=== PATIENT | male | born 1975 | race Two or more races ===

== ENCOUNTER → 2017-04-02 | Outpatient (CLI) | payer BC ==
[~2017-04-02] MED LIST: SIMV-8 OR
[2017-04-02 09:52] LABS: Urine RBC None Seen /hpf (0 - 3)
[2017-04-02 10:00] LABS: Basophils # (auto) 0 uL; Basophils % (auto) 0.7 % (0.0-2.0); CONDITION Y; Eosinophils # (auto) 0.1 uL; Eosinophils % (auto) 1.2 % (0.0-7.0); Hematocrit 46.5 % (41.0-53.0); Hemoglobin 15.9 g/dL (13.5-17.5); Lymphocytes # (auto) 3.3 uL; Lymphocytes % (auto) 50.5 % (10.0-50.0); Mean Platelet Volume 8.4 fL (7.4-10.4); Monocytes # (auto) 0.4 uL; Monocytes % (auto) 6.5 % (0.0-12.0); Neutrophils # (auto) 2.7 uL; Neutrophils % (auto) 41.1 % (37.0-80.0); Platelet Count (auto) 246 10^3/uL (140-450); Red Cell Distribution Width 12.9 % (11.6-16.0); White Blood Cell 6.5 10^3/uL (4.4-10.8)
[2017-04-02 10:20] LABS: Urine Bilirubin Negative (Negative); Urine Blood Negative /uL (Negative); Urine Color Yellow (Yellow); Urine Glucose Normal (Normal); Urine Ketone Negative (Negative); Urine Nitrite Negative (Negative); Urine Squamous Epithelial Cell FEW /hpf (<5); Urine Urobilinogen Normal (Negative); Urine pH 6.5 (5.0-8.0)
[2017-04-02 10:25] LABS: Albumin 4.2 g/dL (3.4-5.0); BUN/Creatinine Ratio 29.2; Bilirubin, Total 0.5 mg/dL (0.2-1.0); Calcium 9.1 mg/dL (8.5-10.1); Potassium 4.1 mmol/L (3.5-5.1)
== END | disposition home or self-care (01) ==
LOC: LAB 09:17
PROVIDERS: ATTEND Internal Medicine
DX: E78.00 Pure hypercholesterolemia, unspecified (principal); I10 Essential (primary) hypertension; Z01.812 Encounter for preprocedural laboratory examination
CPT/HCPCS: 36415; 80053; 80061; 81001; 82150; 83036; 83690; 84439; 84443; 85025; 85652

== ENCOUNTER 2018-02-19 07:41 | Emergency (ER) | payer BC, OTHER ==
[~2018-02-19] VITALS: Ht 165.1 cm; Wt 86.2 kg
[2018-02-19 07:54] VITALS: BP 142/103
[2018-02-19 08:17] LABS: Basophils # (auto) 0.1 uL; Basophils % (auto) 0.5 % (0.0-2.0); Eosinophils # (auto) 0.1 uL; Hematocrit 44.6 % (41.0-53.0); Lymphocytes # (auto) 3.1 uL; Lymphocytes % (auto) 29.2 % (10.0-50.0); Mean Corpuscular Hgb Conc. 33.6 g/dL (32.0-36.0); Mean Corpuscular Volume 89.4 fL (80.0-100.0); Monocytes % (auto) 9.2 % (0.0-12.0); Neutrophils # (auto) 6.4 uL; Neutrophils % (auto) 60.1 % (37.0-80.0); Platelet Count (auto) 177 10^3/uL (140-450); Red Blood Cells 4.99 10^6/uL (4.5-5.90); Red Cell Distribution Width 13.2 % (11.8-14.3); White Blood Cell 10.7 10^3/uL (4.4-10.8)
[2018-02-19 08:28] LABS: Urine Bacteria NONE SEEN /hpf (None Seen); Urine Blood Negative /uL (Negative); Urine Specific Gravity 1.007 (1.001-1.035); Urine WBC <1 /hpf (0 - 3)
[2018-02-19 08:36] LABS: Albumin 3.9 g/dL (3.4-5.0); BUN/Creatinine Ratio 15.7; Bilirubin, Total 0.6 mg/dL (0.2-1.0); Calcium 8.5 mg/dL (8.5-10.1); Potassium 3.9 mmol/L (3.5-5.1); Total Protein 7.6 g/dL (6.4-8.2)
[2018-02-19] MEDS ORDERED: SODIUM CHLORIDE 0.9% 1,000 ML IV ONE ×2 (09:59)
[2018-02-19] MEDS ORDERED: metroNIDAZOLE 500MG/100ML 100 ML IV ONE (10:00)
[2018-02-19] MEDS ORDERED: PROMETHAZINE HCL 25 MG/ML 1ML IV ONE (10:00)
[2018-02-19] MEDS ORDERED: PIPERACILLIN-TAZOB 3.375GM 100 ML IV ONE (10:00)
[2018-02-19] MEDS ORDERED: MORPHINE SULFATE 8mg/ml INJ SDV IV ONE (10:00)
== END 2018-02-19 13:23 | disposition home or self-care (01) ==
LOC: ER 07:41
DX: K57.30 Diverticulosis of large intestine without perforation or abscess without bleeding (principal)
CPT/HCPCS: 36415; 74176; 80053; 81001; 83605; 85025; 87040; 96365; 96366; 96368; 99285; J2543; J3490; J7030; 96361

== ENCOUNTER 2019-04-14 03:36 | Emergency (ER) | payer BC ==
[~2019-04-14] VITALS: Ht 167.6 cm; Wt 89.8 kg
[2019-04-14 03:59] LABS: Basophils # (auto) 0 uL; Basophils % (auto) 0.5 % (0.0-2.0); Eosinophils # (auto) 0.1 uL; Eosinophils % (auto) 0.7 % (0.0-7.0); Hematocrit 45.3 % (41.0-53.0); Hemoglobin 15.2 g/dL (13.5-17.5); Lymphocytes # (auto) 5.3 uL; Mean Corpuscular Hemoglobin 30.9 pg (28.0-32.0); Mean Corpuscular Hgb Conc. 33.7 g/dL (32.0-36.0); Mean Corpuscular Volume 91.9 fL (80.0-100.0); Monocytes # (auto) 0.8 uL; Monocytes % (auto) 7.5 % (0.0-12.0); Neutrophils # (auto) 4.3 uL; Neutrophils % (auto) 41.3 % (37.0-80.0); Nucleated Red Blood Cells % 0.3 %; Platelet Count (auto) 204 10^3/uL (140-450); Red Blood Cells 4.92 10^6/uL (4.5-5.90); Red Cell Distribution Width 13.3 % (11.8-14.3); White Blood Cell 10.5 10^3/uL (4.4-10.8)
[2019-04-14 04:20] LABS: Albumin 4.1 g/dL (3.4-5.0); BUN/Creatinine Ratio 20.5; Calcium 8.8 mg/dL (8.5-10.1); Potassium 3.4 mmol/L (3.5-5.1)
[2019-04-14 04:23] LABS: Bilirubin, Total 0.5 mg/dL (0.2-1.0); Total Protein 7.3 g/dL (6.4-8.2)
[2019-04-14 04:30] LABS: Urine Bacteria NONE SEEN /hpf (None Seen); Urine Blood Negative /uL (Negative); Urine Mucus FEW (None Seen); Urine Specific Gravity 1.024 (1.001-1.035); Urine WBC 1 /hpf (0 - 3)
[2019-04-14] MEDS ORDERED: SODIUM CHLORIDE 0.9% 1,000 ML IV ONE (07:32)
[2019-04-14] MEDS ORDERED: HYDROcodone-ACET 5/325MG TAB PO ONE (07:45)
[2019-04-14] MEDS ORDERED: metroNIDAZOLE 500MG/100ML 100 ML IV ONE (07:45)
[2019-04-14] MEDS ORDERED: POTASSIUM EFFERVESENT TAB 25 MEQ PO ONE (07:45)
[2019-04-14 09:34] VITALS: BP 112/76
== END 2019-04-14 10:03 | disposition home or self-care (01) ==
LOC: ER 03:38
DX: K57.30 Diverticulosis of large intestine without perforation or abscess without bleeding (principal)
CPT/HCPCS: 36415; 74176; 80053; 81001; 83690; 85025; 96361; 96365; 99284; J3490

== ENCOUNTER → 2019-11-21 | Outpatient (CLI) | payer BC ==
[2019-11-21 08:08] LABS: Basophils # (auto) 0 10 ^3/uL (0-0.2); Basophils % (auto) 0.7 % (0.0-2.0); Eosinophils # (auto) 0.1 10 ^3/uL (0-0.8); Hematocrit 46.5 % (41.0-53.0); Hemoglobin 15.7 g/dL (13.5-17.5); Lymphocytes # (auto) 2.8 10 ^3/uL (0.4-5.4); Lymphocytes % (auto) 44.9 % (10.0-50.0); Mean Corpuscular Hemoglobin 30.8 pg (28.0-32.0); Mean Corpuscular Hgb Conc. 33.7 g/dL (32.0-36.0); Mean Corpuscular Volume 91.4 fL (80.0-100.0); Monocytes # (auto) 0.6 10 ^3/uL (0-1.3); Monocytes % (auto) 9.6 % (0.0-12.0); Neutrophils # (auto) 2.8 10 ^3/uL (1.6-8.6); Neutrophils % (auto) 43.8 % (37.0-80.0); Nucleated Red Blood Cells % 0.1 %; Platelet Count (auto) 193 10^3/uL (140-450); Red Blood Cells 5.09 10^6/uL (4.5-5.90); Red Cell Distribution Width 13.3 % (11.8-14.3); White Blood Cell 6.3 10^3/uL (4.4-10.8)
[2019-11-21 08:12] LABS: Urine Bacteria NONE SEEN /hpf (None Seen); Urine Blood Negative /uL (Negative); Urine Mucus FEW (None Seen); Urine Specific Gravity 1.018 (1.001-1.035); Urine WBC <1 /hpf (0 - 3)
[2019-11-21 08:30] LABS: Albumin 4.2 g/dL (3.4-5.0); Potassium 3.9 mmol/L (3.5-5.1)
[2019-11-21 08:36] LABS: Bilirubin, Total 0.7 mg/dL (0.2-1.0); Calcium 9.4 mg/dL (8.5-10.1); Total Protein 7.9 g/dL (6.4-8.2)
[2019-11-21 08:37] LABS: Free T4 (Free Thyroxine) 0.98 ng/dL (0.89-1.76)
[2019-11-21 08:38] LABS: Prostate Specific Antigen 0.39 ng/mL (0.0-4.0)
== END | disposition home or self-care (01) ==
LOC: LAB 07:50
PROVIDERS: ATTEND Internal Medicine
DX: E78.00 Pure hypercholesterolemia, unspecified (principal); R35.1 Nocturia; R10.9 Unspecified abdominal pain
CPT/HCPCS: 36415; 80053; 80061; 81001; 83036; 83615; 84153; 84439; 84443; 85025; 85652

== ENCOUNTER → 2020-04-16 | Outpatient (CLI) | payer BC | END | disposition home or self-care (01) | LOC: LAB 12:43 | PROVIDERS: ATTEND Nurse Practitioner Family | DX: Z20.828 Contact with and (suspected) exposure to other viral communicable diseases (principal) ==

== ENCOUNTER 2022-03-19 15:07 | Emergency (ER) | payer BC, OTHER ==
[~2022-03-19] VITALS: Ht 160 cm; Wt 88.9 kg
[2022-03-19 16:07] LABS: Basophils # (auto) 0 10 ^3/uL (0-0.2); Basophils % (auto) 0.4 % (0.0-2.0); Eosinophils # (auto) 0.1 10 ^3/uL (0-0.8); Eosinophils % (auto) 0.5 % (0.0-7.0); Hematocrit 45.8 % (41.0-53.0); Hemoglobin 14.8 g/dL (13.5-17.5); Lymphocytes # (auto) 3.1 10 ^3/uL (0.4-5.4); Lymphocytes % (auto) 26.7 % (10.0-50.0); Mean Corpuscular Hemoglobin 29.7 pg (28.0-32.0); Mean Corpuscular Hgb Conc. 32.3 g/dL (32.0-36.0); Mean Corpuscular Volume 91.9 fL (80.0-100.0); Monocytes # (auto) 1.1 10 ^3/uL (0-1.3); Monocytes % (auto) 9.9 % (0.0-12.0); Neutrophils # (auto) 7.2 10 ^3/uL (1.6-8.6); Neutrophils % (auto) 62.5 % (37.0-80.0); Nucleated Red Blood Cells % 0.1 %; Red Blood Cells 4.99 10^6/uL (4.5-5.90); Red Cell Distribution Width 13.2 % (11.8-14.3); White Blood Cell 11.5 10^3/uL (4.4-10.8)
[2022-03-19 16:11] LABS: Urine Bacteria NONE SEEN /hpf (None Seen); Urine Blood Negative /uL (Negative); Urine Mucus FEW (None Seen); Urine Specific Gravity 1.017 (1.001-1.035); Urine WBC <1 /hpf (0 - 3)
[2022-03-19 16:18] LABS: BUN/Creatinine Ratio 13.4; Calcium 8.9 mg/dL (8.5-10.1); Potassium 3.4 mmol/L (3.5-5.1)
[2022-03-19 16:21] LABS: Bilirubin, Total 0.7 mg/dL (0.2-1.0); Total Protein 7.6 g/dL (6.4-8.2)
[2022-03-19 16:44] LABS: CRP High Sensitivity 8.96 mg/dL (< 0.3)
[2022-03-19] MEDS ORDERED: ACET-1803 PO (17:29)
[2022-03-19] MEDS ORDERED: AMOX500T86 PO (17:29)
[2022-03-19 17:43] VITALS: BP 113/78
== END 2022-03-19 18:07 | disposition home or self-care (01) ==
LOC: EEVIPCON 15:07 → ER 15:07
DX: K57.32 Diverticulitis of large intestine without perforation or abscess without bleeding (principal); I10 Essential (primary) hypertension
CPT/HCPCS: 36415; 74176; 80053; 81001; 83690; 85025; 86141

== ENCOUNTER 2022-05-30 00:37 | Emergency (ER) | payer OTHER ==
[~2022-05-30] VITALS: Ht 165.1 cm; Wt 84.1 kg
[~2022-05-30 00:37] MED LIST changes: +ACET-1803 PO; +AMOX500T86 PO
[2022-05-30] MEDS ORDERED: OXYCODONE W/ ACETAMINOPHEN 5/325MG TABLET PO ONE (01:00)
[2022-05-30 01:26] LABS: Basophils # (auto) 0.1 10 ^3/uL (0-0.2); Basophils % (auto) 0.6 % (0.0-2.0); Eosinophils # (auto) 0 10 ^3/uL (0-0.8); Eosinophils % (auto) 0.3 % (0.0-7.0); Hematocrit 43.3 % (41.0-53.0); Hemoglobin 14.9 g/dL (13.5-17.5); Lymphocytes # (auto) 2.2 10 ^3/uL (0.4-5.4); Lymphocytes % (auto) 18.7 % (10.0-50.0); Mean Corpuscular Hemoglobin 30.8 pg (28.0-32.0); Mean Corpuscular Hgb Conc. 34.3 g/dL (32.0-36.0); Mean Corpuscular Volume 89.7 fL (80.0-100.0); Monocytes # (auto) 1.1 10 ^3/uL (0-1.3); Monocytes % (auto) 9.8 % (0.0-12.0); Neutrophils # (auto) 8.2 10 ^3/uL (1.6-8.6); Neutrophils % (auto) 70.6 % (37.0-80.0); Red Blood Cells 4.83 10^6/uL (4.5-5.90); Red Cell Distribution Width 13.1 % (11.8-14.3); White Blood Cell 11.6 10^3/uL (4.4-10.8)
[2022-05-30 01:42] LABS: Albumin 4.1 g/dL (3.4-5.0); BUN/Creatinine Ratio 17.1; Calcium 8.9 mg/dL (8.5-10.1); Potassium 3.5 mmol/L (3.5-5.1)
[2022-05-30 01:45] LABS: Bilirubin, Total 0.6 mg/dL (0.2-1.0); Total Protein 7.8 g/dL (6.4-8.2)
[2022-05-30 01:51] LABS: Urine Bacteria NONE SEEN /hpf (None Seen); Urine Blood Negative /uL (Negative); Urine Specific Gravity 1.009 (1.001-1.035); Urine WBC <1 /hpf (0 - 3)
[2022-05-30 04:58] VITALS: BP 114/79
[2022-05-30] MEDS ORDERED: metroNIDAZOLE 500 MG TAB PO ONE (05:00)
[2022-05-30] MEDS ORDERED: CIPROFLOXACIN HCL 500 MG TAB PO ONE (05:00)
[2022-05-30] MEDS ORDERED: PERCOT PO (05:08)
[2022-05-30] MEDS ORDERED: METR500T PO (05:08)
[2022-05-30] MEDS ORDERED: ONDA-144 PO (05:08)
[2022-05-30] MEDS ORDERED: CIPR-173 PO (05:08)
== END 2022-05-30 05:15 | disposition home or self-care (01) ==
LOC: ER 00:38
DX: K52.9 Noninfective gastroenteritis and colitis, unspecified (principal); K57.32 Diverticulitis of large intestine without perforation or abscess without bleeding
CPT/HCPCS: 36415; 74176; 80053; 81001; 83690; 85025

== ENCOUNTER 2022-12-24 07:31 | Emergency (ER) | payer OTHER ==
[~2022-12-24] VITALS: Ht 165.1 cm; Wt 90.0 kg
[~2022-12-24 07:31] MED LIST changes: +CIPR-173 PO; +METR500T PO; +ONDA-144 PO; +PERCOT PO
[2022-12-24 08:03] LABS: Basophils # (auto) 0.1 10 ^3/uL (0-0.2); Basophils % (auto) 0.6 % (0.0-2.0); Eosinophils # (auto) 0.1 10 ^3/uL (0-0.8); Eosinophils % (auto) 0.5 % (0.0-7.0); Hematocrit 43.7 % (41.0-53.0); Lymphocytes # (auto) 2.6 10 ^3/uL (0.4-5.4); Lymphocytes % (auto) 25.8 % (10.0-50.0); Mean Corpuscular Hemoglobin 31.3 pg (28.0-32.0); Mean Corpuscular Hgb Conc. 34.4 g/dL (32.0-36.0); Mean Corpuscular Volume 90.9 fL (80.0-100.0); Monocytes # (auto) 0.8 10 ^3/uL (0-1.3); Monocytes % (auto) 8.1 % (0.0-12.0); Neutrophils # (auto) 6.6 10 ^3/uL (1.6-8.6); Nucleated Red Blood Cells % 0.1 %; Red Blood Cells 4.81 10^6/uL (4.5-5.90); Red Cell Distribution Width 13.4 % (11.8-14.3); White Blood Cell 10.1 10^3/uL (4.4-10.8)
[2022-12-24 08:15] LABS: Urine WBC None Seen /hpf (0 - 3)
[2022-12-24 08:18] LABS: Calcium 8.9 mg/dL (8.5-10.1)
[2022-12-24 08:22] LABS: BUN/Creatinine Ratio 20.3 (10.0-20.0); Bilirubin, Total 0.7 mg/dL (0.2-1.0); Total Protein 7.1 g/dL (6.4-8.2)
[2022-12-24 08:29] LABS: Urine Bacteria NONE SEEN /hpf (None Seen); Urine Blood Negative /uL (Negative); Urine Specific Gravity 1.018 (1.001-1.035)
[2022-12-24] MEDS ORDERED: DONNATAL 5ml ORAL Elix (BELLADONNA ALK-PHENOBARB) PO ONE (08:30)
[2022-12-24] MEDS ORDERED: MAALOX PLUS or MAALOX 30 ML PO ONE (08:30)
[2022-12-24] MEDS ORDERED: LIDOCAINE VISCOUS 2% 15ML UD PO ONE (08:30)
[2022-12-24 09:00] LABS: Alcohol, Urine < 3.0 mg/dL (0-10); Amphetamine Screen, Urine NEGATIVE (NEGATIVE); Barbiturate Scree,Urine NEGATIVE (NEGATIVE); Benzodiazephine Screen, Urine NEGATIVE (NEGATIVE); Cannabinoid Screen, Urine NEGATIVE (NEGATIVE); Cocaine Screen, Urine NEGATIVE (NEGATIVE); Opiate Scree,Urine NEGATIVE (NEGATIVE); Phencyclidine Screen, Urine NEGATIVE (NEGATIVE)
[2022-12-24] MEDS ORDERED: cefTRIAXone 1GM/50ML D5W 50 ML IV ONE (10:00)
[2022-12-24] MEDS ORDERED: metroNIDAZOLE 500MG/100ML 100 ML IV ONE (10:00)
[2022-12-24] MEDS ORDERED: MORPHINE SULFATE 4 MG/ML SYR/VIAL IV ONE (10:00)
[2022-12-24] MEDS ORDERED: SODIUM CHLORIDE 0.9% 1,000 ML IV ONE (10:00)
[2022-12-24] MEDS ORDERED: ONDANSETRON HCL 4 MG/2 ML VIAL IV ONE (10:00)
[2022-12-24] MEDS ORDERED: METR500T PO (10:07)
[2022-12-24] MEDS ORDERED: IBU600T PO (10:07)
[2022-12-24] MEDS ORDERED: CEPH-510 PO (10:07)
[2022-12-24 10:40] VITALS: BP 133/93
== END 2022-12-24 11:31 | disposition home or self-care (01) ==
LOC: ER 07:31
DX: R10.33 Periumbilical pain (principal); K57.92 Diverticulitis of intestine, part unspecified, without perforation or abscess without bleeding; Z79.899 Other long term (current) drug therapy; Z98.890 Other specified postprocedural states
CPT/HCPCS: 36415; 74176; 80053; 80307; 81001; 83690; 85025; 96365; 99285; J0696; J3490; J7030

== ENCOUNTER 2023-05-20 18:17 | Inpatient (IN) | payer OTHER ==
[~2023-05-20] VITALS: Ht 165.1 cm; Wt 86.6 kg
[~2023-05-20 18:17] MED LIST changes: +CEPH-510 PO; +IBU600T PO; -SIMV-8 OR; +SIMV20TA20 OR
[2023-05-20 18:53] LABS: Basophils # (auto) 0 10 ^3/uL (0-0.2); Basophils % (auto) 0.4 % (0.0-2.0); Eosinophils # (auto) 0 10 ^3/uL (0-0.8); Eosinophils % (auto) 0.5 % (0.0-7.0); Hematocrit 46.2 % (41.0-53.0); Hemoglobin 15.8 g/dL (13.5-17.5); Lymphocytes % (auto) 37.6 % (10.0-50.0); Mean Corpuscular Hemoglobin 31.1 pg (28.0-32.0); Mean Corpuscular Hgb Conc. 34.2 g/dL (32.0-36.0); Mean Corpuscular Volume 91.1 fL (80.0-100.0); Monocytes # (auto) 0.6 10 ^3/uL (0-1.3); Monocytes % (auto) 11.7 % (0.0-12.0); Neutrophils # (auto) 2.7 10 ^3/uL (1.6-8.6); Neutrophils % (auto) 49.8 % (37.0-80.0); Nucleated Red Blood Cells % 0.2 %; Red Blood Cells 5.08 10^6/uL (4.5-5.90); Red Cell Distribution Width 13.6 % (11.8-14.3); White Blood Cell 5.4 10^3/uL (4.4-10.8)
[2023-05-20 19:05] LABS: Urine Bacteria NONE SEEN /hpf (None Seen); Urine Blood Negative /uL (Negative); Urine Clarity Clear (Clear); Urine Color Yellow (Yellow); Urine Protein, UAD Negative (Negative); Urine Specific Gravity 1.012 (1.001-1.035); Urine Urobilinogen Normal (Negative); Urine WBC 1 /hpf (0 - 3)
[2023-05-20 19:16] LABS: Alanine Aminotransferase 36 U/L (7-40); Albumin 4.6 g/dL (3.2-4.8); Alkaline Phosphatase 47 U/L (46-116); Anion Gap 6.8 (5-15); Aspartate Aminotransferase 9 U/L (13-40); BUN/Creatinine Ratio 11.8 (10.0-20.0); Blood Urea Nitrogen 9 mg/dL (9-23); Calcium 9.1 mg/dL (8.5-10.1); Carbon Dioxide 25.2 mmol/L (20-30); Chloride 107 mmol/L (98-107); Glucose 98 mg/dL (74-106); Lipase 42 U/L (12-53); Potassium 3.7 mmol/L (3.5-5.1); Sodium 139 mmol/L (136-145)
[2023-05-20 19:17] LABS: Bilirubin, Total 0.9 mg/dL (0.2-1.0)
[2023-05-20 22:00] VITALS: PULSE 79; RESP 16; O2SAT 94
[2023-05-20] MEDS ORDERED: MORPHINE SULFATE 4 MG/ML SYR/VIAL IV ONE (22:15)
[2023-05-20] MEDS ORDERED: SODIUM CHLORIDE 0.9% 1,000 ML IV ONE (22:15)
[2023-05-20] MEDS ORDERED: ONDANSETRON HCL 4 MG/2 ML VIAL IV ONE (22:15)
[2023-05-20] MEDS ORDERED: FAMOTIDINE (10MG/ML) 2ML VL IV ONE (22:15)
[2023-05-20] MEDS ORDERED: NITROGLYCERIN 0.4 MG SL TAB SL PRN (23:00)
[2023-05-20] MEDS ORDERED: ONDANSETRON HCL 4 MG/2 ML VIAL IV PRN (23:00)
[2023-05-20] MEDS ORDERED: ACETAMINOPHEN 325 MG TAB PO PRN (23:00)
[2023-05-20] MEDS ORDERED: MORPHINE SULFATE INJ 2 MG/ml SYRG IV PRN ×2 (23:00)
[2023-05-20] MEDS: SODIUM CHLORIDE 0.9% 1,000 ML IV SCH (23:00)
[2023-05-21 03:51] LABS: Basophils # (auto) 0 10 ^3/uL (0-0.2); Basophils % (auto) 0.5 % (0.0-2.0); Eosinophils # (auto) 0.1 10 ^3/uL (0-0.8); Eosinophils % (auto) 1.4 % (0.0-7.0); Hemoglobin 13.8 g/dL (13.5-17.5); Lymphocytes # (auto) 2.3 10 ^3/uL (0.4-5.4); Lymphocytes % (auto) 44.1 % (10.0-50.0); Mean Corpuscular Hgb Conc. 33.8 g/dL (32.0-36.0); Mean Corpuscular Volume 91.8 fL (80.0-100.0); Monocytes # (auto) 0.6 10 ^3/uL (0-1.3); Monocytes % (auto) 12.2 % (0.0-12.0); Neutrophils # (auto) 2.2 10 ^3/uL (1.6-8.6); Neutrophils % (auto) 41.8 % (37.0-80.0); Red Blood Cells 4.46 10^6/uL (4.5-5.90); Red Cell Distribution Width 13.5 % (11.8-14.3); White Blood Cell 5.3 10^3/uL (4.4-10.8)
[2023-05-21 04:10] LABS: Calcium 8.3 mg/dL (8.5-10.1); Chloride 108 mmol/L (98-107); Potassium 3.5 mmol/L (3.5-5.1); Sodium 140 mmol/L (136-145)
[2023-05-21 04:11] LABS: Anion Gap 6.1 (5-15); Carbon Dioxide 25.9 mmol/L (20-30)
[2023-05-21 04:16] LABS: BUN/Creatinine Ratio 11.3 (10.0-20.0); Blood Urea Nitrogen 8 mg/dL (9-23); Glucose 98 mg/dL (74-106)
[2023-05-21] MEDS: SODIUM CHLORIDE 0.9% 1,000 ML IV SCH (08:40)
[2023-05-21 09:12] VITALS: PULSE 60; RESP 19; O2SAT 97
[2023-05-21 10:02] VITALS: BP 124/80; PULSE 70; RESP 17; TEMP 98; O2SAT 93
[2023-05-21] MEDS: PANTOPRAZOLE 40 MG/10 ML VIAL INJ IV SCH (11:11)
[2023-05-21 12:57] VITALS: BP 132/87; PULSE 73; RESP 17; TEMP 98.1; O2SAT 97
[2023-05-21] MEDS: D5W/SOD CHL 0.45%/KCL 20MEQ 1,000 ML IV SCH ×2 (14:00→23:15)
[2023-05-21 16:00] VITALS: BP 110/77; PULSE 66; RESP 18; TEMP 98.4; O2SAT 93
[2023-05-21 22:00] VITALS: BP 127/91; PULSE 77; RESP 19; TEMP 98.5; O2SAT 95
[2023-05-22 05:00] VITALS: BP 121/84; PULSE 78; RESP 19; TEMP 98; O2SAT 95
[2023-05-22 05:38] LABS: Basophils # (auto) 0 10 ^3/uL (0-0.2); Basophils % (auto) 0.3 % (0.0-2.0); Eosinophils # (auto) 0.1 10 ^3/uL (0-0.8); Eosinophils % (auto) 1.4 % (0.0-7.0); Hematocrit 42.5 % (41.0-53.0); Hemoglobin 14.6 g/dL (13.5-17.5); Lymphocytes # (auto) 2.1 10 ^3/uL (0.4-5.4); Lymphocytes % (auto) 32.5 % (10.0-50.0); Mean Corpuscular Hemoglobin 31.3 pg (28.0-32.0); Mean Corpuscular Hgb Conc. 34.2 g/dL (32.0-36.0); Mean Corpuscular Volume 91.5 fL (80.0-100.0); Monocytes # (auto) 0.8 10 ^3/uL (0-1.3); Monocytes % (auto) 11.8 % (0.0-12.0); Neutrophils # (auto) 3.5 10 ^3/uL (1.6-8.6); Nucleated Red Blood Cells % 0.1 %; Red Blood Cells 4.65 10^6/uL (4.5-5.90); Red Cell Distribution Width 13.1 % (11.8-14.3); White Blood Cell 6.4 10^3/uL (4.4-10.8)
[2023-05-22 05:52] LABS: Anion Gap 5.7 (5-15); Carbon Dioxide 27.3 mmol/L (20-30); Chloride 107 mmol/L (98-107); Potassium 3.6 mmol/L (3.5-5.1); Sodium 140 mmol/L (136-145)
[2023-05-22 05:53] LABS: Calcium 9.3 mg/dL (8.7-10.4)
[2023-05-22 05:58] LABS: BUN/Creatinine Ratio 9.3 (10.0-20.0); Blood Urea Nitrogen 7 mg/dL (9-23); Glucose 100 mg/dL (74-106)
[2023-05-22 08:00] VITALS: BP 120/81; PULSE 75; RESP 14; TEMP 98.2; O2SAT 95
[2023-05-22 09:00] VITALS: BP 120/81; PULSE 75; RESP 14; TEMP 98.2; O2SAT 95
[2023-05-22] MEDS: D5W/SOD CHL 0.45%/KCL 20MEQ 1,000 ML IV SCH (09:15)
[2023-05-22] MEDS ORDERED: OMEP20TA PO (09:16)
[2023-05-22] MEDS ORDERED: POTASSIUM EFFERVESENT TAB 25 MEQ PO ONE (09:30)
[2023-05-22] MEDS ORDERED: GASTROGRAFIN 120 ML SOL ONE (11:03)
[2023-05-22] MEDS: PANTOPRAZOLE 40 MG/10 ML VIAL INJ IV SCH (12:50)
[2023-05-22 13:00] VITALS: BP 121/81; PULSE 77; RESP 14; TEMP 98.2; O2SAT 98
[2023-05-22 16:00] VITALS: BP 120/75; PULSE 82; RESP 12; TEMP 98; O2SAT 95
[2023-05-22 18:06] VITALS: BP 120/75; PULSE 82; RESP 12; TEMP 98.1; O2SAT 95
== END 2023-05-22 18:20 | disposition home or self-care (01) | DRG 392 ==
LOC: ER 18:17 → OVERFLOW 23:03 → EAST 05-21 09:25
PROVIDERS: ADMIT Nurse Practitioner Family; ATTEND Hospitalist
PROC: 0D9670Z Drainage of Stomach with Drainage Device, Via Natural or Artificial Opening (ICD-10-PCS; principal; 2023-05-21)
DX: K52.9 Noninfective gastroenteritis and colitis, unspecified (principal); K56.690 Other partial intestinal obstruction; K57.30 Diverticulosis of large intestine without perforation or abscess without bleeding
CPT/HCPCS: 36415; 71045; 74176; 74250; 80048; 80053; 81001; 83690; 85025; 96361; 96374; 96375; C9113; G0378; J2405; J3490

== ENCOUNTER 2024-04-06 05:20 | Inpatient (IN) | payer OTHER ==
[~2024-04-06] VITALS: Ht 165.1 cm; Wt 85.8 kg
[2024-04-06] VITALS (11 sets, daily range): BP systolic 110–127; BP diastolic 79–85; PULSE 54–78; RESP 12–20; TEMP 97.7–98.8; O2SAT 96–100
[~2024-04-06 05:20] MED LIST changes: -ACET-1803 PO; -AMOX500T86 PO; -CEPH-510 PO; -CIPR-173 PO; -IBU600T PO; -METR500T PO; +OMEP20TA PO; -ONDA-144 PO; -PERCOT PO; -SIMV20TA20 OR
[2024-04-06 05:59] LABS: Hematocrit 41.2 % (41.0-53.0); Hemoglobin 14.3 g/dL (13.5-17.5); Mean Corpuscular Hemoglobin 31.7 pg (28.0-32.0); Mean Corpuscular Hgb Conc. 34.7 g/dL (32.0-36.0); Mean Corpuscular Volume 91.3 fL (80.0-100.0); Red Blood Cells 4.51 10^6/uL (4.5-5.90); Red Cell Distribution Width 13.1 % (11.8-14.3)
[2024-04-06 06:07] LABS: INR 1.05 (0.9-1.15); Partial Thromboplastin Time 27.1 SEC (24.5-34.5); Prothrombin Time 11.1 sec (9.3-11.8)
[2024-04-06 06:13] LABS: Alanine Aminotransferase 29 U/L (7-40); Albumin 4.5 g/dL (3.2-4.8); Alkaline Phosphatase 59 U/L (46-116); Anion Gap 9 (5-15); Aspartate Aminotransferase 14 U/L (13-40); BUN/Creatinine Ratio 13.3 (10.0-20.0); Blood Urea Nitrogen 11 mg/dL (9-23); Calcium 9.3 mg/dL (8.7-10.4); Carbon Dioxide 26 mmol/L (20-30); Chloride 106 mmol/L (98-107); Glucose 123 mg/dL (74-106); Magnesium 2.1 mg/dL (1.6-2.6); Potassium 3.3 mmol/L (3.5-5.1); Sodium 141 mmol/L (136-145)
[2024-04-06 06:14] LABS: Bilirubin, Total 0.4 mg/dL (0.2-1.0); Total Protein 6.9 g/dL (5.7-8.2)
[2024-04-06 06:20] LABS: Band Neutrophils % (manual) 0; Basophils % (manual) 0 (0.0-2.0); Blast Cells 0; Metamyelocytes % 0; Myelocytes % 0; Promyelocytes % 0; Reactive Lymphocytes 0
[2024-04-06 06:37] LABS: Lymphocytes % (manual) 46 (10.0-50.0)
[2024-04-06 06:38] LABS: Eosinophils % (manual) 1 (0-7); Large Platelets FEW; Monocytes % (manual) 23 (0-12); Platelet Estimate Adequa
[2024-04-06] MEDS ORDERED: ASPirin 81 mg TAB PO ONE (07:15)
[2024-04-06] MEDS: NITROGLYCERIN 0.4 MG SL TAB SL ONE (08:02)
[2024-04-06] MEDS: ASPirin-EC 81 mg tab PO ONE (08:08)
[2024-04-06] MEDS: MORPHINE SULFATE 4 MG/ML SYR/VIAL IV ONE (09:03)
[2024-04-06] MEDS: HEPARIN SODIUM (PORCINE) 5000 UNITS/ML 1ML VIAL IV ONE (09:22)
[2024-04-06] MEDS: NITROGLYCERIN 50MG/250ML 250 ML IV ONE (09:35)
[2024-04-06] MEDS ORDERED: HEPARIN DRIP/D5W 100UNITS/ML 250 ML IV SCH (10:30)
[2024-04-06] MEDS ORDERED: ACETAMINOPHEN 325 MG TAB PO PRN (11:45)
[2024-04-06] MEDS ORDERED: MORPHINE SULFATE INJ 2 MG/ml SYRG IV PRN ×2 (11:45)
[2024-04-06] MEDS ORDERED: HYDROcodone-ACET 5/325MG TAB PO PRN (11:45)
[2024-04-06] MEDS ORDERED: NITROGLYCERIN 0.4 MG SL TAB SL PRN (11:45)
[2024-04-06] MEDS: fentaNYL CITRATE 100 MCG/2 ML VL ONE (11:48)
[2024-04-06] MEDS: HEPARIN SODIUM (PORCINE) 5000 UNITS/ML 1ML VIAL ONE (11:48)
[2024-04-06] MEDS: VERAPAMIL 2.5MG/ML INJ 2ML VIAL IV ONE (11:48)
[2024-04-06] MEDS: ANGIOMAX 250 MG VIAL IV ONE (11:48)
[2024-04-06] MEDS: MIDAZOLAM HCL 2MG/2ML 2ml VIAL (1mg/ml) ONE (11:49)
[2024-04-06] MEDS: SODIUM CHL 0.9% 50 ML ONE (11:49)
[2024-04-06] MEDS: IODIXANOL 320MG/ML 100ML BTL IV ONE (11:50)
[2024-04-06] MEDS: HEPARIN IN NS 1000Units/500mL 1,500 ML ONE (11:50)
[2024-04-06] MEDS: LIDOCAINE 2%HCL (LOCAL ANESTH.) INJ 20ML MDV ONE (11:50)
[2024-04-06] MEDS: EPTIFIBATIDE INJ (2MG/ML) 10ML VIAL IV ONE ×2 (12:30)
[2024-04-06] MEDS: niCARdipine 25 MG/10 ML VIAL IV ONE (12:40)
[2024-04-06] MEDS: TICAGRELOR 90 MG TAB ONE (13:13)
[2024-04-06] MEDS: SODIUM CHLORIDE 0.9% 1,000 ML IV SCH (13:20)
[2024-04-06] MEDS: TICAGRELOR 90 MG TAB PO SCH (21:27)
[2024-04-06] MEDS: ATORVASTATIN 20 MG TAB PO SCH (21:27)
[2024-04-07] VITALS (7 sets, daily range): BP systolic 102–135; BP diastolic 63–94; PULSE 75–87; RESP 17–20; TEMP 97.9–98.3; O2SAT 95–98
[2024-04-07 06:46] LABS: Basophils # (auto) 0.1 10 ^3/uL (0-0.2); Basophils % (auto) 0.6 % (0.0-2.0); Eosinophils # (auto) 0 10 ^3/uL (0-0.8); Eosinophils % (auto) 0.5 % (0.0-7.0); Hematocrit 43.5 % (41.0-53.0); Hemoglobin 15.4 g/dL (13.5-17.5); Lymphocytes # (auto) 2.6 10 ^3/uL (0.4-5.4); Lymphocytes % (auto) 28.2 % (10.0-50.0); Mean Corpuscular Hemoglobin 32.4 pg (28.0-32.0); Mean Corpuscular Hgb Conc. 35.4 g/dL (32.0-36.0); Mean Corpuscular Volume 91.5 fL (80.0-100.0); Monocytes % (auto) 10.8 % (0.0-12.0); Neutrophils # (auto) 5.5 10 ^3/uL (1.6-8.6); Neutrophils % (auto) 59.9 % (37.0-80.0); Nucleated Red Blood Cells % 0.1 %; Red Blood Cells 4.75 10^6/uL (4.5-5.90); Red Cell Distribution Width 13.2 % (11.8-14.3); White Blood Cell 9.2 10^3/uL (4.4-10.8)
[2024-04-07 07:07] LABS: Alanine Aminotransferase 46 U/L (7-40); Alkaline Phosphatase 47 U/L (46-116); Anion Gap 8 (5-15); BUN/Creatinine Ratio 9.1 (10.0-20.0); Blood Urea Nitrogen 6 mg/dL (9-23); Calcium 9.4 mg/dL (8.7-10.4); Carbon Dioxide 24 mmol/L (20-30); Chloride 107 mmol/L (98-107); Glucose 111 mg/dL (74-106); Potassium 3.4 mmol/L (3.5-5.1); Sodium 139 mmol/L (136-145)
[2024-04-07 07:08] LABS: Albumin 4.4 g/dL (3.2-4.8); Aspartate Aminotransferase 125 U/L (13-40)
[2024-04-07 07:09] LABS: Bilirubin, Total 1.2 mg/dL (0.2-1.0); Total Protein 6.6 g/dL (5.7-8.2)
[2024-04-07] MEDS: ASPirin 81 mg TAB PO SCH (09:01)
[2024-04-07] MEDS: ENALAPRIL MALEATE 2.5 MG TAB PO SCH (09:01)
[2024-04-07] MEDS: METOPROLOL SUCCINATE XL 50 MG TAB PO SCH (09:02)
[2024-04-07] MEDS ORDERED: ENAL1TAB42 PO (16:26)
[2024-04-07] MEDS ORDERED: ASPI-325 PO (16:26)
[2024-04-07] MEDS ORDERED: NITR0.4S29 SL (16:26)
[2024-04-07] MEDS ORDERED: METO-6 PO (16:26)
[2024-04-07] MEDS ORDERED: ATOR20TA50 PO (16:26)
[2024-04-07] MEDS ORDERED: TICA90TA PO (16:26)
== END 2024-04-07 17:59 | disposition home or self-care (01) | DRG 322 ==
LOC: EEVIPCON 05:20 → ER 05:20 → TELE 11:48 → TELE-EAST 16:07
PROVIDERS: ADMIT Internal Medicine; ATTEND Internal Medicine
PROC: 027034Z Dilation of Coronary Artery, One Artery with Drug-eluting Intraluminal Device, Percutaneous Approach (ICD-10-PCS; principal; 2024-04-06)
PROC: 03CY3ZZ Extirpation of Matter from Upper Artery, Percutaneous Approach (ICD-10-PCS; 2024-04-06)
PROC: 4A023N7 Measurement of Cardiac Sampling and Pressure, Left Heart, Percutaneous Approach (ICD-10-PCS; 2024-04-06)
PROC: B211YZZ Fluoroscopy of Multiple Coronary Arteries using Other Contrast (ICD-10-PCS; 2024-04-06)
DX: I21.4 Non-ST elevation (NSTEMI) myocardial infarction (principal); E66.01 Morbid (severe) obesity due to excess calories; E78.5 Hyperlipidemia, unspecified; G47.30 Sleep apnea, unspecified; I10 Essential (primary) hypertension; Z79.899 Other long term (current) drug therapy; Z79.82 Long term (current) use of aspirin; Z68.31 Body mass index [BMI] 31.0-31.9, adult
CPT/HCPCS: 36415; 71045; 80053; 83735; 83880; 84484; 85007; 85025; 85027; 85610; 85730; 86850; 86900; 86901; 93005; 93306; 99152; C1874; G0378; J2250; Q9967

== ENCOUNTER → 2024-12-24 | Outpatient (CLI) | payer BC ==
[~2024-12-24] MED LIST changes: +ASPI-325 PO; +ATOR20TA50 PO; +ENAL1TAB42 PO; +METO-6 PO; +NITR0.4S29 SL; +TICA90TA PO
[2024-12-24 09:19] LABS: Basophils # (auto) 0 10 ^3/uL (0-0.2); Basophils % (auto) 0.6 % (0.0-2.0); Eosinophils # (auto) 0 10 ^3/uL (0-0.8); Hematocrit 44.2 % (41.0-53.0); Lymphocytes # (auto) 2.1 10 ^3/uL (0.4-5.4); Lymphocytes % (auto) 47.1 % (10.0-50.0); Mean Corpuscular Hemoglobin 31.4 pg (28.0-32.0); Mean Corpuscular Hgb Conc. 33.9 g/dL (32.0-36.0); Mean Corpuscular Volume 92.9 fL (80.0-100.0); Monocytes # (auto) 0.4 10 ^3/uL (0-1.3); Monocytes % (auto) 8.5 % (0.0-12.0); Neutrophils # (auto) 1.9 10 ^3/uL (1.6-8.6); Neutrophils % (auto) 42.8 % (37.0-80.0); Nucleated Red Blood Cells % 0.1 %; Platelet Count (auto) 181 10^3/uL (140-450); Red Blood Cells 4.76 10^6/uL (4.5-5.90); Red Cell Distribution Width 12.9 % (11.8-14.3); White Blood Cell 4.5 10^3/uL (4.4-10.8)
[2024-12-24 09:24] LABS: Alanine Aminotransferase 30 U/L (7-40); Anion Gap 7 (5-15); Aspartate Aminotransferase 16 U/L (13-40); Blood Urea Nitrogen 10 mg/dL (9-23); Calcium 10.1 mg/dL (8.7-10.4); Carbon Dioxide 29 mmol/L (20-31); Chloride 103 mmol/L (98-107); Glucose 105 mg/dL (74-106); Sodium 139 mmol/L (136-145); Total Protein 7.6 g/dL (5.7-8.2)
[2024-12-24 09:25] LABS: Albumin 5.1 g/dL (3.2-4.8); Alkaline Phosphatase 46 U/L (46-116)
[2024-12-24 09:34] LABS: Urine Blood Negative /uL (Negative); Urine Clarity Clear (Clear); Urine Color Light-Yellow (Yellow); Urine Protein, UAD Negative (Negative); Urine Specific Gravity 1.014 (1.001-1.035); Urine Urobilinogen Normal (Negative)
[2024-12-25 16:34] LABS: Triglycerides 67 mg/dL (< 150)
[2024-12-25 16:35] LABS: Cholesterol 119 mg/dL (< 200); LDL Cholesterol 64 mg/dL (< 100)
[2024-12-25 16:36] LABS: HDL Cholesterol 42 mg/dL (40-59)
[2024-12-25 16:53] LABS: Bilirubin, Direct 0.4 mg/dL (<0.3)
== END | disposition home or self-care (01) ==
LOC: LAB 08:30
PROVIDERS: ATTEND Internal Medicine Cardiovascular Disease
DX: I10 Essential (primary) hypertension (principal); E11.9 Type 2 diabetes mellitus without complications; E55.9 Vitamin D deficiency, unspecified; R00.2 Palpitations; D64.9 Anemia, unspecified
CPT/HCPCS: 36415; 80048; 80061; 80076; 81003; 83036; 84153; 84403; 84443; 85025

== ENCOUNTER → 2025-01-06 | Outpatient (CLI) | payer BC | END | disposition home or self-care (01) | LOC: Rad HDHVI 08:06 | PROVIDERS: ATTEND Internal Medicine Cardiovascular Disease | DX: I11.9 Hypertensive heart disease without heart failure (principal) | CPT/HCPCS: 93306 ==

== ENCOUNTER → 2025-01-14 | Outpatient (CLI) | payer BC ==
[~2025-01-14] VITALS: Ht 165.1 cm; Wt 86.2 kg
== END | disposition home or self-care (01) ==
LOC: Rad HDHVI 08:05
PROVIDERS: ATTEND Internal Medicine Cardiovascular Disease
DX: R00.0 Tachycardia, unspecified (principal); I25.10 Atherosclerotic heart disease of native coronary artery without angina pectoris; R07.89 Other chest pain; I10 Essential (primary) hypertension; I25.2 Old myocardial infarction; R94.31 Abnormal electrocardiogram [ECG] [EKG]; E78.00 Pure hypercholesterolemia, unspecified; Z98.61 Coronary angioplasty status
CPT/HCPCS: 78452; 93017; A9500; 96374

== ENCOUNTER → 2025-09-16 | Outpatient (CLI) | payer BC ==
[2025-09-16 08:07] LABS: Hematocrit 48.2 % (41.0-53.0); Hemoglobin 16.3 g/dL (13.5-17.5); Mean Corpuscular Hemoglobin 30.5 pg (28.0-32.0); Mean Corpuscular Volume 90.5 fL (80.0-100.0); Nucleated Red Blood Cells % 0.0 %
[2025-09-16 08:19] LABS: Urine Protein, UAD Negative (Negative)
[2025-09-16 08:39] LABS: Alanine Aminotransferase 31 U/L (7-40); Alkaline Phosphatase 47 U/L (46-116); Anion Gap 10 (5-15); BUN/Creatinine Ratio 13.8 (10.0-20.0); Blood Urea Nitrogen 12 mg/dL (9-23); Calcium 9.9 mg/dL (8.7-10.4); Carbon Dioxide 30 mmol/L (20-31); Chloride 103 mmol/L (98-107); Potassium 3.9 mmol/L (3.5-5.1); Sodium 143 mmol/L (136-145); Total Protein 7.4 g/dL (5.7-8.2); Triglycerides 116 mg/dL (< 150)
[2025-09-16 08:40] LABS: Albumin 4.8 g/dL (3.2-4.8); Bilirubin, Direct 0.3 mg/dL (<0.3); Bilirubin, Total 1.0 mg/dL (0.2-1.0); Cholesterol 153 mg/dL (< 200); Glucose 107 mg/dL (74-106); HDL Cholesterol 46 mg/dL (40-59)
== END | disposition home or self-care (01) ==
LOC: LAB 07:32
PROVIDERS: ATTEND Internal Medicine
DX: C61 Malignant neoplasm of prostate (principal); I10 Essential (primary) hypertension; E11.9 Type 2 diabetes mellitus without complications; E55.9 Vitamin D deficiency, unspecified; D64.9 Anemia, unspecified
CPT/HCPCS: 36415; 80048; 80061; 80076; 81003; 83036; 84153; 84403; 84443; 85025